=== PATIENT | male | born 1960 | race Caucasian/White ===

== ENCOUNTER → 2017-11-14 17:20 | Outpatient (CLI) | payer OTHER, SELFPAY | PROVIDERS: Family Provider Family Medicine; PCP Family Medicine; Visit Provider Family Medicine | DX: N50.82 Scrotal pain (principal) | CPT/HCPCS: 76870; 93976 ==

== ENCOUNTER → 2017-11-15 10:18 | Outpatient (CLI) | payer OTHER, SELFPAY ==
[2017-11-15 11:24] LABS: Absolute Lymphocyte Count 1.48 X10^3/ul (0.83-4.51); Absolute Neutrophil Count 2.8 X10^3/uL (2.0-7.7); Basophil# 0.06 X10^3/uL; Basophil% 1.1 % (0-1); Eosinophil# 0.75 X10^3/uL; Eosinophils% 13.2 % (0-5); Hematocrit 42.9 % (40-54); Hemoglobin 14.9 g/dl (13.0-16.5); Lymphocyte # 1.48 X10^3/ul (4.0); Mean Corp Hgb Conc 34.7 g/gl (32-36); Mean Corpuscular Hgb 31.2 pg (27.0-32.0); Mean Corpuscular Volume 89.9 fL (80-94); Mean Platelet Vol. 9.3 fl (6.2-12.0); Monocyte# 0.58 X10^3/uL; Monocyte% 10.2 % (0-10); Neutrophil # 2.81 X10^3/uL (2.7-7.7); Neutrophil % 49.1 % (47-70); POSITIVE COUNT NO; POSITIVE DIFFERENTIAL NO; POSITIVE MORPHOLOGY NO; Platelet Count 245 K/mm3 (150-450); RBC Distribution Width CV 12.3 % (11.6-14.6); RBC Distribution Width SD 39.9 fl (35.1-43.9); Red Blood Count 4.77 M/mm3 (4.6-6.2); White Blood Count 5.7 K/mm3 (4.4-11.0)
[2017-11-15 12:05] LABS: Anion Gap 7 (5-15); BUN 10 mg/dL (7-18); Calcium,Total 8.4 mg/dL (8.5-10.1); Chloride 110 mmol/L (98-107); Cholesterol 186 mg/dL (200); EST Glomerular Filtration Rate 82 mL/min (>60); Est Glom Filt Rate - Afr Amer 100 mL/min (>60); Glucose 112 mg/dL (74-106); High Density Lipoprotein 30 mg/dL; Potassium 3.7 mmol/L (3.5-5.1); Sodium Level 141 mmol/L (136-145); Thyroid Stim Hormone (TSH) 1.53 uIU/mL (0.358-3.74); Triglycerides 193 mg/dL; Very Low Density Lipoprotein 39 mg/dL (5-40)
[2017-11-17 09:27] LABS: Vitamin D,25 Hydroxy 30.2 ng/mL (29.95-100.01)
== END ==
PROVIDERS: Family Provider Family Medicine; PCP Family Medicine; Visit Provider Family Medicine
DX: Z00.00 Encounter for general adult medical examination without abnormal findings (principal)
CPT/HCPCS: 36415; 80048; 80061; 82306; 84403; 84443; 85025

== ENCOUNTER → 2019-02-04 10:34 | Outpatient (CLI) | payer OTHER, SELFPAY ==
[2013-04-09 19:32] VITALS: BMI 24.7
--- NOTE | 2019-02-04 10:37 | RAD_ITS ---
HISTORY: right knee pain started 4 days ago, tenderness ADDITIONAL HISTORY: None provided. COMPARISON: None TECHNIQUE: Right knee 4 views, including weightbearing views Number of images including paperwork: 4 FINDINGS: BONES: No acute fracture. JOINTS: No subluxation. Mild medial cartilage joint space narrowing. SOFT TISSUES: No distinct foreign body. Soft tissue swelling is present anterior to the patella. RAD/Knee 4 or More Views IMPRESSION: No acute osseous abnormality. Soft tissue swelling anterior to the patella. Correlate for prepatellar bursitis or other cause of soft tissue swelling. at 2239 Reported and signed by: Karla Blancas MD Electronically Signed: Karla Blancas MD at 22:39 EST Tel , Service support ,
[2019-02-04 12:35] LABS: Anion Gap 8 (5-15); BUN 11 mg/dL (7-18); BUN/Creat Ratio 8.9 RATIO (10-20); Calcium,Total 8.5 mg/dL (8.5-10.1); Chloride 106 mmol/L (98-107); Creatinine, Serum 1.23 mg/dL (0.70-1.30); EST Glomerular Filtration Rate 65 mL/min (>60); Est Glom Filt Rate - Afr Amer 78 mL/min (>60); Glucose 100 mg/dL (74-106); Potassium 3.9 mmol/L (3.5-5.1); Sodium Level 141 mmol/L (136-145); Uric Acid 4.2 mg/dL (3.5-7.2)
[2019-02-04 12:39] LABS: Absolute Lymphocyte Count 3.06 X10^3/uL (0.83-4.51); Absolute Neutrophil Count 4.3 X10^3/uL (2.0-7.7); Basophil# 0.05 X10^3/uL; Basophil% 0.6 % (0-1); Eosinophils% 2.3 % (0-5); Hematocrit 46.4 % (40-54); Hemoglobin 15.5 g/dL (13.0-16.5); Lymphocyte # 3.06 X10^3/ul (4.0); Lymphocyte % 35.3 % (19-41); Mean Corp Hgb Conc 33.4 g/dL (32-36); Mean Corpuscular Hgb 30.9 pg (27.0-32.0); Mean Corpuscular Volume 92.6 fL (80-94); Mean Platelet Vol. 9.4 fl (6.2-12.0); Monocyte# 1.06 X10^3/uL; Monocyte% 12.2 % (0-10); NRBC Flagged by Analyzer 0 % (0-5); Neutrophil # 4.25 X10^3/uL (2.7-7.7); Neutrophil % 49.1 % (47-70); Platelet Count 279 K/mm3 (150-450); RBC Distribution Width CV 12.7 % (11.6-14.6); RBC Distribution Width SD 43.2 fl (35.1-43.9); Red Blood Count 5.01 M/mm3 (4.6-6.2); White Blood Count 8.7 K/mm3 (4.4-11.0)
== END ==
PROVIDERS: Family Provider Family Medicine; PCP Family Medicine; Referring Provider Family Medicine; Visit Provider Family Medicine
DX: M25.561 Pain in right knee (principal)
CPT/HCPCS: 36415; 73564; 80048; 84550; 85025

== ENCOUNTER 2019-02-05 13:41 | Emergency (ER) | payer OTHER, SELFPAY ==
[2019-02-05 10:49] VITALS: BMI 24.7
[2019-02-05 13:46] VITALS: BP 134/93; PULSE 66; RESP 17; TEMP 36.6; O2SAT 98; BMI 27.6
--- NOTE | 2019-02-05 14:07 | CT_ITS ---
STUDY: CT ABDOMEN AND PELVIS WITHOUT CONTRAST REASON FOR EXAM: Male, 58 years old. Right lower quadrant pain with radiation towards the right testicle. RADIATION DOSAGE (If Supplied By Facility): CTDIvol = ( 9.83 ) mGy, DLP = ( 543.78 ) mGycm TECHNIQUE: Transaxial images were obtained from the dome of the diaphragm to the symphysis pubis without oral contrast, and without intravenous contrast. Sagittal and coronal images were reconstructed. Individualized dose optimization techniques were used for this CT. COMPARISON: None. FINDINGS: The visualized lung bases are unremarkable. The visualized portions of the heart are within normal limits. Normal liver. Normal gallbladder and extrahepatic biliary system. There are benign calcified granulomata of the spleen. Normal pancreas. Normal bilateral adrenal glands. Mild degree of right hydronephrosis and mild right hydroureter with minimal right perinephric stranding. No obstructive calculus is seen at this time. This may be telemarketing representative of recently passed ureteral calculus. Normal left kidney. There is a small hiatal hernia. Normal small intestine. Normal colon. The appendix is visualized and appears normal. Normal abdominal aorta. Normal inferior vena cava. There is borderline retroperitoneal lymphadenopathy with enlarged nodes no greater than 10mm in the short axis diameter. Normal urinary bladder. Bilateral inguinal hernias containing fat worse on the left side. Normal osseous structures. CT/Abdomen/Pelvis without Cont IMPRESSION: Mild degree of right hydronephrosis and hydroureter. No obstructive calculus is seen at this time. A recently passed calculus should be ruled Bilateral inguinal hernias containing fat more prominent on the left side. Electronically Signed: Allen Long, at 15:19 EST , Service support ,
--- NOTE | 2019-02-05 14:12 | ED.VISSUMM ---
- ER Visit Summary Date of Service: 02/05/19 Chief Complaint: Right flank pain History of Present Illness: The patient is a 58 M presenting with right flank pain. Patient states this started 2 hours prior to arrival. Pain was sudden in onset. He is unable to get comfortable and is writhing around the bed. He has nausea, no vomiting. No fever. He states this started after having a normal bowel movement. No history of kidney stones. Physical Examination: Vitals are stable. Patient is afebrile. Alert moderate acute distress. HEENT exam is unremarkable. Neck is supple. Lungs are clear and equal bilaterally. Heart is regular rate and rhythm. Abdomen is soft nontender nondistended. Back: Right CVA tenderness Extremities are unremarkable. Skin is warm and dry. No focal neurologic deficit. Remainder of exam is unremarkable. Emergency Department Course and Treatment: Patient was given morphine, Zofran IV. Urinalysis shows 0 white cells, 0-[address] flank shows mild degree of right hydronephrosis and hydroureter. No obstructive calculus is seen at this time. A recently passed calculus should be ruled. Bilateral inguinal hernias containing fat more prominent on the left side. Patient was able to urinate in the ED. On reevaluation he was pain-free. His pain then returned. He states the pain is more in his right testicle at this time. Ultrasound is ordered and is pending at this time and will be checked out to oncoming physician. Disposition: Pending Impression: Right flank pain This note was generated with [employer] dictation software. It may contain incorrect words, spelling, and punctuation that were not noted in review of the chart prior to signing ED Disposition - Plan for ED Patient: Instructions: KIDNEY STONE, Passed Referrals: Kun Colin MD [STAFF PHYSICIAN] - Juanito Chavez MD [Primary Care Provider] -
[2019-02-05] MEDS: Morphine 4 MG/ML Syringe IV ×2 (14:15→16:49)
[2019-02-05] MEDS: Ondansetron 4 MG/2 ML Vial IV (14:15)
[2019-02-05 14:38] LABS: Bacteria 0 SEEN /hpf (None Seen); Mucous, Urine 0 SEEN /hpf (<or=2+); Squamous Epithelial Cells - UA 0 SEEN /hpf (0-5); White Blood Cells 0 SEEN /hpf (0-5)
[2019-02-05 14:42] LABS: Color, Urine Yellow (Yellow); Glucose, Dipstick Normal (Normal); Ketone-Dipstick Negative (Negative); Leukocyte Esterase-Dipstick Negative /ul (Negative); Nitrite-Dipstick Negative (Negative); Occult Blood-Urine 50 /ul (Negative); Protein-Dipstick 15 mg/dl (Negative); Specific Gravity, Urine 1.025 (1.002-1.030); Urine Bilirubin Dipstick Negative (Negative); Urine Clarity Sl. Cloudy (Clear); Urine Urobilinogen Normal (Normal)
[2019-02-05 14:55] LABS: Red Blood Cells-Urine 0-5 SEEN /hpf (0-5)
[2019-02-05] MEDS: Ketorolac 30 MG/ML Syringe IV (15:26)
[2019-02-05 15:30] VITALS: BP 129/85; PULSE 60; RESP 29; O2SAT 97
[2019-02-05 16:04] VITALS: BP 131/80; PULSE 58; RESP 16; O2SAT 96
--- NOTE | 2019-02-05 16:45 | US_ITS ---
STUDY: SCROTUM ULTRASOUND REASON FOR EXAM: Male, 58 years old. Right testicular pain TECHNIQUE: Ultrasound evaluation of the scrotum was performed with color Doppler and static moore-scale imaging. COMPARISON: 11/14/2017. FINDINGS: RIGHT TESTICLE INTRATESTICULAR: There is a normal size of the right testicle. The right testicle measures 3.4 x 2.6 x 1.7 cm. There is a homogenous echotexture. There is normal arterial and normal venous vascularity. There is no demonstrated right testicular mass or cyst. EXTRATESTICULAR: The epididymis is normal in size. The epididymis head measures 1.2 cm. There is normal vascularity of the epididymis. There is no demonstrated epididymal cystic structure. There is no demonstrated hydrocele. There are prominent extratesticular veins consistent with a varicocele. There is no demonstrated extratesticular mass or cyst. LEFT TESTICLE INTRATESTICULAR: There is a normal size of the left testicle. The left testicle measures 3.7 x 2.2 x 1.7 cm. There is a homogenous echotexture. There is normal arterial and normal venous vascularity. There is no demonstrated left testicular mass or cyst. EXTRATESTICULAR: The epididymis is normal in size. The epididymis head measures 1.0 cm. There is normal vascularity of the epididymis. There is a well-defined cystic structure within the epididymis, without internal echoes, consistent with a 5 mm epididymal cyst. There is no demonstrated hydrocele. There are prominent extratesticular veins consistent with a varicocele. There is no demonstrated extratesticular mass or cyst. US/Testicular with Arterial Flow IMPRESSION: Normal bilateral testicles. Bilateral varicoceles. Electronically Signed: Darwin Sol MD at 18:22 EST , Service support ,
--- NOTE | 2019-02-05 16:55 | ED.DEP ---
ED Disposition - Plan for ED Patient: Instructions: KIDNEY STONE, Passed Referrals: Juanito Chavez MD [Primary Care Provider] - Kun Colin MD [STAFF PHYSICIAN] -
[2019-02-05 17:06] VITALS: RESP 14
[2019-02-05 17:52] LABS: Absolute Lymphocyte Count 0.91 X10^3/uL (0.83-4.51); Absolute Neutrophil Count 8.4 X10^3/uL (2.0-7.7); Basophil# 0.02 X10^3/uL; Basophil% 0.2 % (0-1); Hematocrit 44.4 % (40-54); Lymphocyte # 0.91 X10^3/ul (4.0); Lymphocyte % 9.1 % (19-41); Mean Corp Hgb Conc 33.8 g/dL (32-36); Mean Corpuscular Hgb 30.8 pg (27.0-32.0); Mean Corpuscular Volume 91.2 fL (80-94); Mean Platelet Vol. 9.1 fl (6.2-12.0); Monocyte# 0.53 X10^3/uL; Monocyte% 5.3 % (0-10); NRBC Flagged by Analyzer 0 % (0-5); Neutrophil # 8.44 X10^3/uL (2.7-7.7); Platelet Count 265 K/mm3 (150-450); RBC Distribution Width CV 12.3 % (11.6-14.6); RBC Distribution Width SD 40.9 fl (35.1-43.9); Red Blood Count 4.87 M/mm3 (4.6-6.2)
[2019-02-05 18:05] LABS: Anion Gap 7 (5-15); BUN 15 mg/dL (7-18); BUN/Creat Ratio 11.3 RATIO (10-20); Calcium,Total 8.6 mg/dL (8.5-10.1); Chloride 111 mmol/L (98-107); Creatinine, Serum 1.33 mg/dL (0.70-1.30); EST Glomerular Filtration Rate 59 mL/min (>60); Est Glom Filt Rate - Afr Amer 71 mL/min (>60); Estimated Creatinine Clearance 57.98 ml/min; Glucose 133 mg/dL (74-106); Potassium 3.9 mmol/L (3.5-5.1); Sodium Level 142 mmol/L (136-145)
[2019-02-05 18:14] VITALS: BP 105/68; PULSE 73; RESP 16; O2SAT 95
== END 2019-02-05 18:59 | disposition home or self-care (01) ==
PROVIDERS: Emergency Provider Emergency Medicine; Family Provider Family Medicine; PCP Family Medicine
DX: N13.30 Unspecified hydronephrosis (principal); R10.9 Unspecified abdominal pain; N13.4 Hydroureter; N43.3 Hydrocele, unspecified; R11.0 Nausea; K40.20 Bilateral inguinal hernia, without obstruction or gangrene, not specified as recurrent; Z79.899 Other long term (current) drug therapy
CPT/HCPCS: 36415; 74176; 76870; 80048; 81001; 85025; 93976; 96374; 96375; 96376; 99283; J7030; A4216; J2405

== ENCOUNTER → 2019-02-08 17:37 | Outpatient (CLI) | payer OTHER, SELFPAY ==
[2019-02-05 13:46] VITALS: BMI 27.6
--- NOTE | 2019-02-08 17:43 | MRI_ITS ---
STUDY: MRI RIGHT KNEE REASON FOR EXAM: Male, 58 years old. R KNEE PAIN NKI, pain lateral knee x 1 week, swelling TECHNIQUE: Standardized fat and water weighted pulse sequences were obtained in all 3 orthogonal planes. COMPARISON: None. FINDINGS: Mild subcutaneous edema is present around the knee joint. No marrow edema or fracture line is seen. Mild intramuscular strain edema is present in the gastrocnemius muscles. Normal medial meniscus. Normal hyaline cartilage of the medial femorotibial compartment. Normal medial femoral condyle and tibial plateau. Normal medial collateral ligamentous complex (MCL). Normal distal semimembranosus, gracilis and semitendinosus tendons. Normal lateral meniscus. Normal hyaline cartilage of the lateral femorotibial compartment. Normal lateral femoral condyle and tibial plateau. Normal proximal tibiofibular articulation. Normal lateral collateral (fibular) ligament. Normal popliteus tendon. Normal biceps femoris tendon. Normal anterior cruciate ligament (ACL). Normal posterior cruciate ligament (PCL). Normal congruent patellofemoral articulation. Normal hyaline cartilage of the patellofemoral compartment. Normal medial and lateral patellar retinaculum. Normal quadriceps tendon. Normal patellar tendon. Normal Hoffa's fat pad. There is no joint effusion. The soft tissues are unremarkable. The otherwise visualized osseous structures are unremarkable. MRI/Lower Ext Joint Only (Routine) IMPRESSION: 1. Mild subcutaneous and intramuscular strain edema. 2. Normal menisci and ligaments. Electronically Signed: Marky Leon MD at 23:57 EST , Service support ,
== END ==
PROVIDERS: Family Provider Family Medicine; PCP Family Medicine; Referring Provider Family Medicine; Visit Provider Family Medicine
DX: M25.561 Pain in right knee (principal)
CPT/HCPCS: 73721

== ENCOUNTER 2019-04-05 17:55 | Outpatient (RCR) | payer BC, SELFPAY ==
--- NOTE | 2019-04-06 14:42 | HP.SP.AD_ITS ---
History - History Date of Eval: 04/05/19 Medical Diagnosis (from RX): Dysphonia Date of Onset of Diagnosis: 2015 Previous speech therapy: No Other Relevant Medical History/Diagnoses/Surgery: Acid reflux, ENT report from 05/09/18 stated sticky mucus strainging between midprotion of each vocal cord, ?? early nodule formation. Medications related to this diagnosis: Omeprazole, intermittent use of Mucinex. Smoking Status: Never smoker Hx Smoking: No Hx Tobacco Use: No - Pain Is pain an issue with your current prescribed condition?: No - Personal Occupation: septic pump truck driver Right Hearing Abillity: Normal Left Hearing Abillity: Normal Visual Assistive Devices: None Patients Living Arrangements: With Significant Other Patient Allergies - Allergies Allergies venom-honey bee [bee venom (honey bee)] Allergy (Verified 02/05/19 13:54) Shortness of breath Subjective Voice - Intubation Was the Client intubated: No - Intake Water (ounces): 16 Coffee (ounces): 0 Energy drinks (ounces): 0 Milk (ounces): 0 - Alcoholic Beverage Intake Intake: Rarely - Other Product Usage Do you use products containing menthol (if yes, list): No Do you take Vitamin C Supplements (if yes, list amt (mg)/day: No Do you use recreational drugs (if yes, list type/amt/frequency): No Subjective Clinical Impression - Adult Clinical Impression Tremor: involuntary variations in pitch and loudness when trying to produce a steady, sustained tone; usually of a [employer] SALESP[employer] origin: Present Vocal fatigue: a 'tired' voice or feeling of excessive effort to phonate: Present Vocal tension: a tightness of the laryngeal musculature during voicing: Present Objective Voice - Date of Diagnosis Previous Speech Therapy (If yes, describe): No - Objective data Objective Data: Objective data: Sound pressure level (SPL acoustic correlation of vocal loudness) was measured with a sound level meter at a distance of 40 cm from the patient's mouth. Average conversational loudness is 70-80 dB and sustained phonation duration is 15 to 20 seconds for a typical adult. Sustained Phonatin duration (seconds): 18 Is the individual stimulable to increase vocal intensity: Yes Other Impressions - Comments Comments -: Ray played a recording of his voice from 5 years ago on the radio. He has a lower pitch than previously and also has a raspy quality now. He reports that if he yells then he will lose his voice. When speaking he uses a harsh onset of words as emphasis. Plan - Plan Plan: Speech therapy is warranted for vocal abuse education as well as using positive vocal behaviors to reduce possible vocal fold nodules. - Recommendations Treatment Warranted: Yes - Frequency Frequency: 1x/Week Duration: 6 Months Visits in this POC: 1x week for 2 weeks then monthly for 3 months as needed. - Goals that are Established: Determination:: Goals will be added/modified as deemed necessary and appropriate. Therapy will be discontinued when results of re-evaluation indicate therapy is no longer needed or lack of progress has been documented. - Goal #1-5 Goal #1: Ray will verbalize an understanding of vocal abuses and ways to reduce them to overall decrease vocally abuses beahviors that could contribute to nodule formation. Goal #2: Ray will complete easy onset when vocalizing on 4/5 trials on words, sentences and in conversation. Education - Patient has Indicated that the Following Identified Educational Needs: None The Patient has indicated that they have no educational or learning abilities that may effect their care.: Yes - Patient Instruction Patient Education: Diagnosis, Treatment Plan, Goals Person Taught: Patient Teaching Method: Discussion Response to teaching: Verbalize understanding
--- NOTE | 2019-09-08 11:16 | HP.SP.DC_ITS ---
ST Discharge Summary - Discharged: Discharge: Magdaleno Márquez is discharged from [facility] speech therapy as of September 08, 2019. He requested a hold on therapy after his initial evaluation on 04/06/19 for a voice disorder. Therapy was recommended for a short duration to focus on decreasing vocal abuses and complete easy onset technique. He stated he would contact this therapist if he wished to initiate therapy. At this time, no contact has been made and he is discharged from therapy. A copy of this discharge will be sent to his referring physician.
== END 2019-04-05 19:00 | disposition home or self-care (01) ==
LOC: SP 17:55
PROVIDERS: Family Provider Family Medicine; PCP Family Medicine; Referring Provider Otolaryngology Otolaryngology/Facial Plastic Surgery; Visit Provider Otolaryngology Otolaryngology/Facial Plastic Surgery
DX: R49.0 Dysphonia (principal)
CPT/HCPCS: 92524

== ENCOUNTER → 2020-08-21 15:10 | Outpatient (CLI) | payer BC, SELFPAY ==
--- NOTE | 2020-08-21 15:13 | RAD_ITS ---
STUDY: X-RAY CHEST REASON FOR EXAM: Male, 59 years old. COUGH TECHNIQUE: PA and lateral views of the chest. COMPARISON: None. FINDINGS: The lungs are clear and expanded. There is no demonstrated pleural abnormality. Normal size heart. Normal mediastinum and jessie. Normal visualized pulmonary arteries. Normal visualized aortic arch and descending thoracic aorta. Normal visualized thoracic spine. Normal visualized ribs, clavicles, and shoulders. There is no demonstrated abnormality of the visualized soft tissue structures of the upper abdomen. RAD/Chest PA and Lateral IMPRESSION: Normal x-ray examination of the chest. Electronically Signed: Osmar Weiss MD at 8:40 EDT Tel , Service support ,
[2020-08-27 03:06] LABS: Alternaria alternata <0.10 kU/L (Class 0); Aspergillus fumigatus <0.10 kU/L (Class 0); Bahia Grass <0.10 kU/L (Class 0); Bermuda Grass <0.10 kU/L (Class 0); Bluegrass, Kentucky <0.10 kU/L (Class 0); Cat Hair/Dander, Standard 0.79 kU/L (Class II); Cedar, Mountain <0.10 kU/L (Class 0); Cladosporium herbarum <0.10 kU/L (Class 0); Cockroach, American <0.10 kU/L (Class 0); D farinae Mite <0.10 kU/L (Class 0); D pteronyssinus <0.10 kU/L (Class 0); Dog Epithelia 0.21 kU/L (Class 0/I); Elm, American White <0.10 kU/L (Class 0); Hazelnut Tree <0.10 kU/L (Class 0); Hickory, White <0.10 kU/L (Class 0); Johnson Grass <0.10 kU/L (Class 0); Maple/Box Elder <0.10 kU/L (Class 0); Mucor racemosus <0.10 kU/L (Class 0); Mugwort <0.10 kU/L (Class 0); Mulberry, White <0.10 kU/L (Class 0); Oak, White <0.10 kU/L (Class 0); Penicillium chrysogen <0.10 kU/L (Class 0); Pigweed, Rough <0.10 kU/L (Class 0); Plantain, English <0.10 kU/L (Class 0); Ragweed, Short/Common <0.10 kU/L (Class 0); Sheep Sorrel(Dock) <0.10 kU/L (Class 0); Stemphylium herbarum <0.10 kU/L (Class 0); Sweet Gum <0.10 kU/L (Class 0); Sycamore, American <0.10 kU/L (Class 0)
[2020-08-27 13:33] LABS: Nettle <0.10 kU/L (Class 0)
== END ==
PROVIDERS: PCP Family Medicine; Referring Provider Family Medicine; Visit Provider Family Medicine
DX: R05 Cough (principal)
CPT/HCPCS: 36415; 71046; 86003

== ENCOUNTER → 2020-08-22 15:53 | Outpatient (CLI) | payer BC, SELFPAY ==
[2020-08-22 17:38] LABS: Absolute Lymphocyte Count 2.09 X10^3/uL (0.83-4.51); Absolute Neutrophil Count 8.5 X10^3/uL (2.0-7.7); Basophil# 0.03 X10^3/uL; Basophil% 0.3 % (0-1); Eosinophil# 0.06 X10^3/uL; Eosinophils% 0.5 % (0-5); Hematocrit 40.4 % (40-54); Lymphocyte # 2.09 X10^3/ul (0.83-4.51); Mean Corp Hgb Conc 34.7 g/dL (32-36); Mean Corpuscular Volume 89.4 fL (80-94); Mean Platelet Vol. 9.4 fl (6.2-12.0); Monocyte% 7.8 % (0-10); NRBC Flagged by Analyzer 0 % (0-5); Neutrophil % 73.1 % (47-70); Platelet Count 264 K/mm3 (150-450); RBC Distribution Width CV 12.1 % (11.6-14.6); RBC Distribution Width SD 39.8 fl (35.1-43.9); Red Blood Count 4.52 M/mm3 (4.6-6.2); White Blood Count 11.6 K/mm3 (4.4-11.0)
== END ==
PROVIDERS: PCP Family Medicine; Referring Provider Family Medicine; Visit Provider Family Medicine
DX: R05 Cough (principal)
CPT/HCPCS: 85025

== ENCOUNTER → 2021-02-26 15:23 | Outpatient (CLI) | payer BC, SELFPAY ==
--- NOTE | 2021-02-26 15:27 | RAD_ITS ---
STUDY: X-RAY - CERVICAL SPINE REASON FOR EXAM: Male, 60 years old. CERVICALGIA TECHNIQUE: 6 view(s) of the cervical spine were obtained. COMPARISON: None FINDINGS: Normal anterior atlantoaxial articulation. Normal odontoid process. Normal cervical lordosis. Normal vertebral bodies and endplates. Normal disc space heights. Normal visualized intervertebral neuroforamina. The soft tissue structures are unremarkable. RAD/Cerv Spine 4 or 5 Views IMPRESSION: Normal x-ray examination of the visualized cervical spine. Electronically Signed: Sai Goodwin DO at 3:16 EST Tel , Service support ,
== END ==
PROVIDERS: PCP Family Medicine; Referring Provider Family Medicine; Visit Provider Family Medicine
DX: M54.2 Cervicalgia (principal)
CPT/HCPCS: 72050

== ENCOUNTER → 2022-06-10 | Outpatient (CLI) | payer BC, SELFPAY ==
--- NOTE | 2022-06-10 12:58 | RAD_ITS ---
STUDY: X-RAY - LUMBAR SPINE REASON FOR EXAM: Male, 61 years old. Back pain. TECHNIQUE: 4 view(s) of the lumbar spine were obtained. COMPARISON: None FINDINGS: Normal lumbar lordosis. There is no substantial scoliosis. There is a normal alignment of the vertebrae. Diffuse thoracic and lumbosacral facet sclerosis. Minimal intervertebral disc space narrowing at L2-3 and L3-4 with small osteophytes. Normal visualized soft tissues. RAD/L/S Spine Min 4 Views IMPRESSION: Osteopenia with minimal lower lumbar spondylosis. No acute abnormality, evidence of erosive changes/fusion. Electronically Signed: Jean Melara, at 14:15 EDT ,
[2022-06-10 15:20] LABS: Hemoglobin 15.7 g/dL (13.0-16.5); Mean Corp Hgb Conc 33.4 g/dL (32-36); Mean Corpuscular Hgb 30.2 pg (27.0-32.0); Mean Corpuscular Volume 90.4 fL (80-94); Mean Platelet Vol. 9.3 fl (6.2-12.0); Platelet Count 243 K/mm3 (150-450); RBC Distribution Width SD 39.8 fl (35.1-43.9); White Blood Count 3.1 K/mm3 (4.4-11.0)
[2022-06-10 15:44] LABS: Anion Gap 7 (5-15); BUN 9 mg/dL (7-18); BUN/Creat Ratio 9.5 RATIO (10-20); Calcium,Total 9.1 mg/dL (8.5-10.1); Chloride 104 mmol/L (98-107); Creatinine, Serum 0.94 mg/dL (0.70-1.30); EST Glomerular Filtration Rate 87 mL/min (>60); Est Glom Filt Rate - Afr Amer 105 mL/min (>60); Glucose 90 mg/dL (74-106); PSA,Total- Diagnostic 0.53 ng/mL (0.0-4.0); Potassium 3.7 mmol/L (3.5-5.1); Sodium Level 138 mmol/L (136-145)
== END | disposition home or self-care (01) ==
PROVIDERS: PCP Family Medicine; Referring Provider Family Medicine; Visit Provider Family Medicine
DX: R39.11 Hesitancy of micturition (principal); M54.9 Dorsalgia, unspecified
CPT/HCPCS: 36415; 72110; 80048; 84153; 85027

== ENCOUNTER → 2022-09-16 | Outpatient (CLI) | payer BC, SELFPAY ==
[2022-09-16 17:49] LABS: PSA,Total - Annual Screen 1.13 ng/mL (0.00-4.00)
== END | disposition home or self-care (01) ==
LOC: LAB 15:30
PROVIDERS: PCP Family Medicine; Referring Provider Urology; Visit Provider Urology
DX: Z12.5 Encounter for screening for malignant neoplasm of prostate (principal)
CPT/HCPCS: 36415; 84153; G0103